=== PATIENT | male | born 1990 | race Two or more races ===

== ENCOUNTER 2016-08-06 18:11 | Emergency (ER) | payer MEDICAID ==
[~2016-08-06] VITALS: Ht 170.2 cm; Wt 59.0 kg
[~2016-08-06 18:11] MED LIST: CARISPRODOL; NAPROXYN; QUET25TA37; RESPERIDOL
[2016-08-06] MEDS ORDERED: LORazepam 2MG/ML-1ML VIAL IV ONE ×2 (19:00→21:00)
[2016-08-06] MEDS ORDERED: PROPOFOL 100 ML IV ONE (21:55)
[2016-08-06] MEDS ORDERED: PROPOFOL 10 MG/ML 20 ML IV ONE (22:00)
[2016-08-06 23:20] VITALS: BP 95/60
== END 2016-08-06 23:35 | disposition home or self-care (01) ==
LOC: EDBD 18:11 → ER 18:23
DX: S09.90XA Unspecified injury of head, initial encounter (principal); Z88.6 Allergy status to analgesic agent; W22.8XXA Striking against or struck by other objects, initial encounter; Y93.89 Activity, other specified; Y99.8 Other external cause status; Y92.89 Other specified places as the place of occurrence of the external cause
CPT/HCPCS: 70450; 96374; 96376; 99284; J2060; J2704; J7030; 96375

== ENCOUNTER 2022-03-24 21:33 | Inpatient (IN) | payer MEDICAID ==
[~2022-03-24] VITALS: Ht 144.8 cm; Wt 57.0 kg
[2022-03-24] MEDS ORDERED: SODIUM CHLORIDE 0.9% 1,000 ML IV ONE (21:45)
[2022-03-24] MEDS: SODIUM CHLORIDE 0.9% 1,000 ML IV ONE ×2 (21:58→23:52)
[2022-03-24 22:16] LABS: Basophils # (auto) 0 10 ^3/uL (0-0.2); Basophils % (auto) 0.8 % (0.0-2.0); Eosinophils # (auto) 0 10 ^3/uL (0-0.8); Eosinophils % (auto) 0.3 % (0.0-7.0); Hematocrit 40.9 % (41.0-53.0); Lymphocytes # (auto) 0.8 10 ^3/uL (0.4-5.4); Lymphocytes % (auto) 14.6 % (10.0-50.0); Mean Corpuscular Hemoglobin 33.7 pg (28.0-32.0); Mean Corpuscular Hgb Conc. 34.2 g/dL (32.0-36.0); Mean Corpuscular Volume 98.5 fL (80.0-100.0); Monocytes # (auto) 0.4 10 ^3/uL (0-1.3); Monocytes % (auto) 8.1 % (0.0-12.0); Neutrophils # (auto) 4.2 10 ^3/uL (1.6-8.6); Neutrophils % (auto) 76.2 % (37.0-80.0); Nucleated Red Blood Cells % 0.1 %; Red Blood Cells 4.15 10^6/uL (4.5-5.90); Red Cell Distribution Width 14.3 % (11.8-14.3); White Blood Cell 5.5 10^3/uL (4.4-10.8)
[2022-03-24 22:36] LABS: Albumin 3.7 g/dL (3.4-5.0); BUN/Creatinine Ratio 10.7; Calcium 8.6 mg/dL (8.5-10.1); Potassium 3.8 mmol/L (3.5-5.1)
[2022-03-24 22:39] LABS: Bilirubin, Total 0.3 mg/dL (0.2-1.0); Total Protein 7.1 g/dL (6.4-8.2)
[2022-03-24] MEDS ORDERED: LORazepam 2MG/ML-1ML VIAL ONE (23:12)
[2022-03-24] MEDS ORDERED: LORazepam 2MG/ML-1ML VIAL IV ONE (23:30)
[2022-03-25] MEDS ORDERED: levETIRAcetam 500 MG/5ML INJ IV ONE (00:04)
[2022-03-25] MEDS ORDERED: ACETAMINOPHEN 325 MG TAB PO PRN (02:45)
[2022-03-25] MEDS ORDERED: SOD CHL 0.45% 1,000 ML IV SCH (02:45)
[2022-03-25] MEDS ORDERED: LORazepam 0.5 MG TAB PO PRN (02:45)
[2022-03-25] MEDS ORDERED: DOCUSATE SOD 100 MG CAP PO PRN (02:45)
[2022-03-25] MEDS ORDERED: HYDROcodone-ACET 5/325MG TAB PO PRN (02:45)
[2022-03-25] MEDS ORDERED: TEMAZEPAM 15 MG CAP PO PRN (02:45)
[2022-03-25] MEDS ORDERED: ONDANSETRON HCL 4 MG/2 ML VIAL IV PRN (02:45)
[2022-03-25] MEDS ORDERED: ALUM & MAG HYDROX-SIMETH LIQ(MAALOX) 30 ML PO PRN (02:45)
[2022-03-25] MEDS ORDERED: MORPHINE SULFATE INJ 2 MG/ml SYRG IV PRN (02:45)
[2022-03-25 08:00] VITALS: BP 100/64
[2022-03-25 08:40] LABS: Urine Amorphous Crystal FEW /hpf (None Seen); Urine Bacteria MOD /hpf (None Seen); Urine Blood Negative /uL (Negative); Urine Mucus FEW (None Seen); Urine Specific Gravity 1.017 (1.001-1.035); Urine WBC 2 /hpf (0 - 3)
[2022-03-25] MEDS ORDERED: QUEtiapine FUMARATE 100 MG TAB PO SCH (14:00)
[2022-03-25 14:32] LABS: Basophils # (auto) 0 10 ^3/uL (0-0.2); Basophils % (auto) 0.6 % (0.0-2.0); Eosinophils # (auto) 0 10 ^3/uL (0-0.8); Eosinophils % (auto) 0.5 % (0.0-7.0); Hematocrit 39.6 % (41.0-53.0); Hemoglobin 13.6 g/dL (13.5-17.5); Lymphocytes # (auto) 0.7 10 ^3/uL (0.4-5.4); Lymphocytes % (auto) 11.3 % (10.0-50.0); Mean Corpuscular Hemoglobin 33.4 pg (28.0-32.0); Mean Corpuscular Hgb Conc. 34.2 g/dL (32.0-36.0); Mean Corpuscular Volume 97.7 fL (80.0-100.0); Monocytes # (auto) 0.6 10 ^3/uL (0-1.3); Monocytes % (auto) 9.2 % (0.0-12.0); Neutrophils # (auto) 4.9 10 ^3/uL (1.6-8.6); Neutrophils % (auto) 78.4 % (37.0-80.0); Nucleated Red Blood Cells % 0.1 %; Red Blood Cells 4.05 10^6/uL (4.5-5.90); Red Cell Distribution Width 14.4 % (11.8-14.3); White Blood Cell 6.2 10^3/uL (4.4-10.8)
[2022-03-25 14:35] LABS: Calcium 8.8 mg/dL (8.5-10.1); Potassium 4.1 mmol/L (3.5-5.1)
== END 2022-03-25 15:04 | disposition left against medical advice (07) | DRG 53 ==
LOC: ER 21:33 → EDBD 21:33 → TELE 03-25 02:47
PROVIDERS: ADMIT Hospitalist; ATTEND Family Medicine
DX: R56.9 Unspecified convulsions (principal); Q90.9 Down syndrome, unspecified; Z53.29 Procedure and treatment not carried out because of patient's decision for other reasons; Z20.822 Contact with and (suspected) exposure to COVID-19
CPT/HCPCS: 36415; 70450; 80048; 80053; 81001; 84484; 85025; 87426; 96361; 96365; 96366; 96375; G0378; J7060

== ENCOUNTER 2022-08-28 18:14 | Emergency (ER) | payer MEDICAID ==
[~2022-08-28] VITALS: Ht 152.4 cm; Wt 68.0 kg
[2022-08-28] MEDS ORDERED: LORazepam 0.5 MG TAB PO ONE (19:15)
[2022-08-28] MEDS ORDERED: TETANUS-DIPTH-ACEL PERTUSSIS 0.5ML SYR Tdap IM ONE (19:15)
[2022-08-28 19:57] LABS: Basophils # (auto) 0.1 10 ^3/uL (0-0.2); Basophils % (auto) 1.1 % (0.0-2.0); Eosinophils # (auto) 0 10 ^3/uL (0-0.8); Eosinophils % (auto) 0.6 % (0.0-7.0); Hematocrit 40.9 % (41.0-53.0); Hemoglobin 13.8 g/dL (13.5-17.5); Lymphocytes % (auto) 20.3 % (10.0-50.0); Mean Corpuscular Hemoglobin 32.7 pg (28.0-32.0); Mean Corpuscular Hgb Conc. 33.6 g/dL (32.0-36.0); Mean Corpuscular Volume 97.4 fL (80.0-100.0); Monocytes # (auto) 0.4 10 ^3/uL (0-1.3); Monocytes % (auto) 8.3 % (0.0-12.0); Neutrophils # (auto) 3.3 10 ^3/uL (1.6-8.6); Neutrophils % (auto) 69.7 % (37.0-80.0); Nucleated Red Blood Cells % 0.1 %; Red Cell Distribution Width 14.2 % (11.8-14.3); White Blood Cell 4.8 10^3/uL (4.4-10.8)
[2022-08-28 20:13] LABS: Calcium 8.4 mg/dL (8.5-10.1)
[2022-08-28 20:29] LABS: Albumin 3.4 g/dL (3.4-5.0); Bilirubin, Total 0.2 mg/dL (0.2-1.0); Total Protein 7.2 g/dL (6.4-8.2)
[2022-08-28 21:56] VITALS: BP 118/78
[2022-08-28] MEDS ORDERED: AUG875T PO (22:07)
[2022-08-28] MEDS ORDERED: AMOXICILLIN/CLAVUL 875 MG TAB PO ONE (22:15)
== END 2022-08-28 22:08 | disposition home or self-care (01) ==
LOC: EDBD 18:14 → ER 18:17
DX: S60.571A Other superficial bite of hand of right hand, initial encounter (principal); R45.1 Restlessness and agitation; E11.9 Type 2 diabetes mellitus without complications; Z98.890 Other specified postprocedural states
CPT/HCPCS: 36415; 70450; 71045; 80053; 83690; 84484; 85025; 90471; 90715